=== PATIENT | female | born 1975 | race Caucasian/White ===

== ENCOUNTER 2020-10-05 15:01 | Emergency (ER) | payer OTHER, SELFPAY ==
--- NOTE | ~2020-10-05 | CT_ITS ---
EXAMINATION: CT ANGIOGRAM HEAD CT ANGIOGRAM NECK CLINICAL INFORMATION: Left-sided headache. Dizziness. Neck pain. COMPARISON: CT head from 02/22/2009. TECHNIQUE: Initial noncontrast director of scout work imaging of the head and neck was performed. Noncontrast head CT was also performed. Test bolus sequences followed by intravenous administration 70 mL of Omnipaque 350. Helical imaging was performed in the axial plane from the aortic arch to the skull vertex. Delayed postcontrast imaging of the head was also performed. The data was processed at the sterile processing technologist's workstation for generation of MIP sequences. Angled MIPs and volume rendered reformatted images were also generated at an offline 3D workstation. Stenoses are assessed in accordance with NASCET criteria unless otherwise indicated. DLP: 2219 mGy-cm This CT examination was performed using dose optimization techniques as appropriate, variously including the following: *Automated exposure control. *Adjustment of mA and/or kV according to patient size (this includes techniques or standardized protocols for targeted exams where dose is matched to indication/reason for exam; i.e. extremities or head). *Use of iterative reconstruction technique. FINDINGS: CT Head: There is no evidence of acute intracranial hemorrhage or edematous territorial infarction. There is no abnormal attenuation within the brain parenchyma. Banerjee-white matter differentiation is preserved. The ventricles are normal in size and configuration. No evidence for obstructive hydrocephalus. No abnormal mass effect or midline shift. No extra-axial fluid collections. No pathologic intra-axial enhancement or regional oligemia. No acute soft tissue or osseous abnormalities. Minimal mucosal thickening of the paranasal sinuses. The mastoid air cells and middle ear cavities remain well aerated. Enamel erosions associated with multiple maxillary and mandibular teeth. Mild periapical lucency and surrounding sclerosis of the alveolar process associated with the maxillary right-sided molars. CT Neck: The thyroid gland and remaining cervical soft tissues are within normal limits. No significant abnormalities of the cervical spine. CT Upper Chest: The visualized lung apices and upper mediastinum are within normal limits. Neck CTA: Aortic Arch: Normal contour and caliber. Classic 3 vessel branching pattern of the aortic arch. Great Vessel Origins: No significant stenosis of the branch origins. Right Common Carotid Artery: Normal opacification without focal stenosis or occlusion. Cervical Right Internal Carotid Artery: Normal opacification without focal stenosis or occlusion. Left Common Carotid Artery: Normal opacification without focal stenosis or occlusion. Cervical Left Internal Carotid Artery: Normal opacification without focal stenosis or occlusion. Cervical Right Vertebral Artery: Co-dominant. Normal opacification without focal stenosis or occlusion. Cervical Left Vertebral Artery: Co-dominant. Normal opacification without focal stenosis or occlusion. Brain CTA: Moderate motion degradation. Intracranial Internal Carotid Arteries: Normal contrast opacification of the petrous, cavernous, paraophthalmic, and supraclinoid segments of the internal carotid arteries without focal stenosis. Right Anterior Cerebral Artery: Normal A1 segment. Normal opacification of the distal segments of the [place]. Left Anterior Cerebral Artery: Normal A1 segment. Normal opacification of the distal segments of the [place]. Anterior Communicating Artery: Normal. Right Middle Cerebral Artery: Normal opacification of the M1 segment of the MCA without focal stenosis or occlusion. Normal arborization of the distal segments. Left Middle Cerebral Artery: Normal opacification of the M1 segment of the MCA without focal stenosis or occlusion. Normal arborization of the distal segments. Right Vertebral Artery: Normal opacification of the V4 segment. Extracranial origin of the right-sided posterior inferior cerebellar artery. Otherwise, normal opacification of the proximal segments of the posterior inferior cerebellar artery. Left Vertebral Artery: Normal opacification of the V4 segment. The posterior inferior cerebellar artery is not well opacified; however, there is no CT evidence of acute occlusion. Basilar Artery: Normal opacification without focal stenosis or occlusion. Normal appearance of the proximal superior cerebellar arteries. Right Posterior Cerebral Artery: The P1 segment is diminutive. origin of the [place] with robust opacification of the posterior communicating artery. Normal opacification of the distal segments of the [place]. Left Posterior Cerebral Artery: The P1 segment is diminutive. origin of the [place] with robust opacification of the posterior communicating artery. Normal opacification of the distal segments of the [place]. Normal opacification of the superior sagittal, straight, transverse, and sigmoid sinuses. CT/CT angio head neck IMPRESSION: 1. No evidence of acute intracranial hemorrhage or edematous territorial infarction. 2. CTA of the head and neck without proximal occlusion or flow-limiting stenosis. 3. Odontogenic disease.
[2020-10-05 15:08] VITALS: BP 136/64; PULSE 72; RESP 18; TEMP 36.6; O2SAT 100; BMI 42.4
--- NOTE | 2020-10-05 17:13 | ECG_ITS ---
Test Reason : DIZZYNESS Blood Pressure : / mmHG Vent. Rate : 063 BPM Atrial Rate : 063 BPM P-R Int : 166 ms QRS Dur : 104 ms QT Int : 418 ms P-R-T Axes : 037 -05 -11 degrees QTc Int : 427 ms Normal sinus rhythm Voltage criteria for left ventricular hypertrophy Nonspecific T wave abnormality Abnormal ECG When compared with ECG of 20-JUL-2014 06:49, Significant changes have occurred Referred By: Sosa Nino Electronically Signed By:SHITAL LOUIS MD
--- NOTE | 2020-10-05 17:14 | ED.GENADULT ---
HPI - General Adult General Chief complaint: Dizziness Stated complaint: HEADACHE X 2 WEEKS Time Seen by Provider: 10/05/20 17:12 Source: patient Mode of arrival: ambulatory Limitations: no limitations History of Present Illness HPI narrative: 45 y/o female presenting with left sided headache worsening over 2 weeks. She reports last night it acutely worsened and she developed neck pain, brief left sided facial tingling and dizziness. She woke up with this morning with severe left sided neck pain, she is unable to move her neck from side to side. She has been taking Aleve for the pain with some mild, brief improvement. She reports she feels unsteady on her feet as well. She was sent in from her PCP at [facility] for further evaluation. She has been dizzy with position changes intermittently over the last 2 weeks as well. MD complaint: left sided head and neck pain Onset (ago): week(s) (2) Location: head and neck Radiation: extremity Severity: severe Severity scale (1-10): 8 Quality: sharp Pain Consistency: constant Relieving factors: movement Exacerbating factors: movement Associated symptoms: headaches Treatments prior to arrival: NSAID Related Data Previous Rx's Medication Instructions Recorded uownrondff-[id number] 1 cap PO Q8H PRN #14 cap 10/05/20 [Fioricet] diazepam [Valium] 5 mg PO TID PRN #8 tab 10/05/20 lidocaine [Lidoderm] 1 patch TOPICAL DAILY #15 ea 10/05/20 Allergies Allergy/AdvReac Type Severity Reaction Status Date / Time aspirin [Aspirin] Allergy Severe ANGIOEDEMA Unverified 05/12/20 16:17 codeine [Codeine] Allergy Severe THROAT Unverified 05/12/20 16:17 SWELLING Fish Containing Products Allergy Severe SWELLING Unverified 05/12/20 16:17 ibuprofen [From Motrin] Allergy Severe ANGIOEDEMA Unverified 05/12/20 16:17 Iodinated Contrast Media Allergy Severe ANGIOEDEMA Unverified 05/12/20 16:17 [IVP Dye, Iodine Containing] latex [Latex] Allergy Severe ANGIOEDEMA Unverified 05/12/20 16:17 nickel [Nickel] Allergy Intermediate RASH Unverified 05/12/20 16:17 sulfamethoxazole Allergy Intermediate RASH Unverified 05/12/20 16:17 [From BACTRIM] trimethoprim [From BACTRIM] Allergy Intermediate RASH Unverified 05/12/20 16:17 prolixin Allergy Unknown Unverified 04/18/15 00:00 lactose [Lactose] AdvReac Severe STOMACH Unverified 05/12/20 16:17 UPSET From PROLIXIN Allergy Severe ANGIOEDEMA Uncoded 05/12/20 16:17 Codeine Sulfate Allergy Unknown Uncoded 04/18/15 00:00 IV dye Allergy Unknown Uncoded 02/16/15 00:00 IV Dyes Allergy Unknown Uncoded 04/18/15 00:00 lactos intollerant Allergy Unknown Uncoded 04/18/15 00:00 Latex Allergy Unknown Uncoded 04/18/15 00:00 latex Allergy Unknown Uncoded 02/16/15 00:00 nicotine patch Allergy Unknown Uncoded 04/18/15 00:00 Review of Systems Review of Systems: Constitutional: No Fever, No Chills ENT/Mouth: No sore throat, No Rhinorrhea, No Swallowing Difficulty Eyes: No Eye Pain, No Swelling, No Redness Cardiovascular: No Chest Pain, No SOB, No Orthopnea, No Edema Respiratory: No Cough, No Sputum, No Wheezing, No dyspnea Gastrointestinal: No Nausea, No Vomiting, No Diarrhea, No abdominal Pain Genitourinary: No Dysuria, No Urinary Frequency, No Hematuria Musculoskeletal: No joint pain, + Myalgias Skin: No Skin Lesions, No rash Neuro: No Weakness, No Numbness, + Dizziness, + Headache Psych: No Anxiety/Panic, No Depression Heme/Lymph: No Bruising, No Lymphadenopathy PMFSH Past Medical History Attestation statement: The following information was validated with the patient. Medical History Anxiety and depression Asthma Asthma COVID-19 GERD (gastroesophageal reflux disease) Irritable bowel syndrome Morbid obesity Nonalcoholic fatty liver disease Pseudoseizures PTSD (post-traumatic stress disorder) Social History Social History Smoked in Last 30 Days: No Use of substances other than those prescribed or required for medical reasons: No Advance Directives: No Advance Directives Information Provided: No Physical Exam Vital Signs: Vital Signs: Last Vital Signs Temp 98.9 F 10/05/20 19:13 Pulse 74 10/05/20 20:09 Resp 15 10/05/20 20:09 BP 125/64 10/05/20 20:09 Pulse Ox 98 10/05/20 20:09 Body Mass Index 42.4 Const: General: cooperative, healthy appearing, comfortable, no acute distress, alert and awake Orientation/consciousness: oriented to person, oriented to place and oriented to time HENMT: Head: Yes normal to inspection, Yes normocephalic and Yes atraumatic Ears: hearing grossly normal bilaterally General nose exam: Normal external nose present and Normal nares present Face and sinus: Yes normal facial exam Mouth: Normal oral and palatal mucosa present Throat: Yes posterior oropharynx normal Eyes: General: appearance normal, both eyes and all related structures Periorbital: periorbital findings normal Eyelids: Yes eyelids normal Conjunctivae: conjunctivae normal Pupils: Equal, round and reactive pupils present and Pupil accommodation reflex normal EOM: EOMs intact bilaterally Neck: Neck: Yes normal visual inspection and Yes tender (left side with SCM spasm) Lymphatic: no lymphadenopathy noted Chest: Chest palpation & inspection: normal inspection of the chest and normal palpation of entire chest wall Resp: Effort & Inspection: normal respiratory effort and able to speak in complete sentences Auscultation: clear to auscultation bilaterally Cardio: Jugular venous distension: no JVD Rate: regular rate Rhythm: regular rhythm GI: Inspection: Yes normal to inspection Palpation (GI): Soft to palpation and nontender Auscultation: normal bowel sounds Skin: General skin exam: no rashes or lesions noted Neuro: General: oriented to person, oriented to place and oriented to time Cranial nerves: Yes CN's II-XII intact bilaterally and Yes Equal, round and reactive pupils present Cognition (Neuro): normal cognition Motor exam (neuro): 5/5 motor strength present throughout and Pronator motor function present pronator drift of left upper extremity Coordination: jtzuoe-cg-gikq test normal and dizd-qh-gcut test normal Extrem: General: Yes normal to inspection and Yes full ROM Psych: Appearance: grossly normal and well kempt Mental Status: mental status grossly normal Speech and movement: Normal speech and movement present and Clear speech present Affect: Blunted affect present Attitude: cooperative Thought process: Normal thought process present Thought content: Normal thought content present Course Course Course Narrative: 45 y/o presenting with 2 weeks of left sided headache, acutely worsening lsat night with new neck pain, dizziness, and facial tingling. Very limited neck ROM wtih tenderness throughout left lateral neck, possible torticollis however concern for possible dissection or CVA given her symptoms. Symptoms have been present for almost [address] head, CTA head/neck to assess vasulature. PO Valium and Tylenol ordered now for muscle spams in neck. Reevaluation(s) Reevaluation #1: Significant improvement in neck pain after Valium and Tylenol. Headache persists but improved. No dizziness. Ambulating with steady gait. CTA head/neck is normal. She is feeling much better. She agrees to follow up with her PCP tomorrow and will return to the ER if symptoms worsen. Comfortable with d/c home. Medical Decision Making Lab Data Result diagrams: 10/05/20 17:32 10/05/20 17:32 Labs: Lab Results 10/05/20 10/05/20 10/05/20 Range/Units 17:32 17:32 17:32 WBC 9.7 (4.8-10.8) X10*3/uL RBC 4.82 (4.20-5.50) X10*6/uL Hgb 14.2 (12.0-16.0) g/dl Hct 43.6 (37-47) % MCV 90.5 (80-98) fL MCH 29.5 (27.0-33.0) pg MCHC 32.6 (31.0-35.0) g/dl RDW 13.2 (11.0-16.0) % Plt Count 229 (160-400) X10*3/uL MPV 12.0 (9.4-12.3) fL Immature Gran % (Auto) 0.4 (0.0-0.4) % Neut % (Auto) 63.2 (45-73) % Lymph % (Auto) 28.7 (20-40) % [place] % (Auto) 4.7 (2-11) % Eos % (Auto) 2.3 (0-4) % Baso % (Auto) 0.7 (0-2) % Lymph # (Auto) 2.8 (1.2-4.9) X10*3/uL [place] # (Auto) 0.5 (0.1-1.2) X10*3/uL Eos # (Auto) 0.2 (0.0-0.4) X10*3/uL Baso # (Auto) 0.1 (0.0-0.2) X10*3/uL Abs Immat Gran (auto) 0.04 H (0.00-0.03) X10*3/uL Absolute Neuts (auto) 6.2 (2.0-8.3) X10*3/uL Absolute Nucleated RBC 0.000 (0.0-0.012) X10*3/uL Nucleated RBC % (auto) 0.0 (0.0-0.2) /100WBC PT 13.5 H (10.8-13.0) SEC INR 1.1 (0.9-1.1) APTT 32.1 (24.1-38.0) SEC Hold Blue Top SEE NOTE Sodium 142 (135-145) mmol/L Potassium 4.0 (3.3-5.1) mmol/L Chloride 109 H (96-108) mmol/L Carbon Dioxide 25 (22-29) mmol/L Anion Gap 12 (12-20) BUN 19 H (9-16) mg/dL Creatinine 0.77 (0.5-1.4) mg/dL Estim Creat Clear Calc 95.2 Estimated GFR > 60 Random Glucose 105 (60-115) mg/dL Calcium 8.9 (8.4-10.2) mg/dL Magnesium 2.3 (1.6-2.6) mg/dL Total Bilirubin 0.3 (0.0-1.0) mg/dL Direct Bilirubin < 0.2 (0.0-0.5) mg/dL AST 15 (5-31) U/L ALT 27 (0-31) U/L Alkaline Phosphatase 132 H (39-117) U/L Total Protein 6.9 (6.5-8.0) g/dL Albumin 4.2 (3.5-5.0) g/dL ECG Data Attestation: I personally reviewed and interpreted this ECG as follows: Interpretation: normal sinus rhythm, HR 63 bpm, nonspecivic T-wave abnormalities - t-wave inversion in lead III, V1-V4. 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 Your blood workup was normal. Your exam is consistent with muscle spasm in your neck. Take the prescribed medications for this. Recommend using heat to the area several times per day. Start gentle stretches of your neck as tolerated. Prescriptions: New diazepam [Valium] 5 mg tablet 5 mg PO TID PRN (Reason: muscle spasm) Qty: 8 RF: 0 offnfngpbs-stprvfcbjfopw-tagy [Fioricet] 50-300-40 mg capsule 1 cap PO Q8H PRN (Reason: headache) Qty: 14 RF: 0 lidocaine [Lidoderm] 5 % adhesive patch,medicated 1 patch topical DAILY Qty: 15 RF: 0 Interventions: ED Discharge Assessment Last Done: 10/05/20 21:00 Discharge Date/Time: 10/05/20 21:02
[2020-10-05 17:21] VITALS: BP 152/88; PULSE 67; RESP 18; O2SAT 100
[2020-10-05 17:38] LABS: MANUAL DIFF FLAG NO
[2020-10-05 17:40] LABS: Basophils Absolute Auto 0.1 X10*3/uL (0.0-0.2); Basophils Percent Auto 0.7 % (0-2); Eosinophils Absolute Auto 0.2 X10*3/uL (0.0-0.4); Eosinophils Percent Auto 2.3 % (0-4); Hematocrit 43.6 % (37-47); Hemoglobin 14.2 g/dl (12.0-16.0); Imm Gran Abs Auto 0.04 X10*3/uL (0.00-0.03); Imm Gran Pct Auto 0.4 % (0.0-0.4); Lymphocytes Absolute Auto 2.8 X10*3/uL (1.2-4.9); Lymphocytes Percent Auto 28.7 % (20-40); Mean Corpuscular HGB Conc 32.6 g/dl (31.0-35.0); Mean Corpuscular Hemoglobin 29.5 pg (27.0-33.0); Mean Corpuscular Volume 90.5 fL (80-98); Monocytes Absolute Auto 0.5 X10*3/uL (0.1-1.2); Monocytes Percent Auto 4.7 % (2-11); Neutrophils Absolute Auto 6.2 X10*3/uL (2.0-8.3); Neutrophils Percent Auto 63.2 % (45-73); Platelet Count 229 X10*3/uL (160-400); Red Blood Count 4.82 X10*6/uL (4.20-5.50); Red Cell Distribution Width 13.2 % (11.0-16.0); White Blood Count 9.7 X10*3/uL (4.8-10.8)
[2020-10-05 17:43] LABS: INTERNATIONAL NORM RATIO 1.1 (0.9-1.1); Prothrombin Time 13.5 SEC (10.8-13.0)
[2020-10-05 17:46] LABS: Partial Thromboplastin Time 32.1 SEC (24.1-38.0)
[2020-10-05] MEDS: diazePAM 5 MG TABLET PO (17:55)
[2020-10-05] MEDS: Acetaminophen 325 MG TABLET 975 MG PO (17:55)
[2020-10-05 18:00] VITALS: BP 133/62; PULSE 62; RESP 16; TEMP 37; O2SAT 100
[2020-10-05 18:24] LABS: Alanine Aminotransferase 27 U/L (0-31); Albumin Level 4.2 g/dL (3.5-5.0); Alkaline Phosphatase 132 U/L (39-117); Anion Gap 12 (12-20); Aspartate Amino Transferase 15 U/L (5-31); Bilirubin Direct < 0.2 mg/dL (0.0-0.5); Bilirubin Total 0.3 mg/dL (0.0-1.0); Blood Urea Nitrogen 19 mg/dL (9-16); Calcium 8.9 mg/dL (8.4-10.2); Carbon Dioxide 25 mmol/L (22-29); Chloride 109 mmol/L (96-108); Creatinine Clr Calc Pharmacy 95.2; Estimated Glomerular Filt Rate > 60; Glucose Random 105 mg/dL (60-115); Magnesium 2.3 mg/dL (1.6-2.6); Sodium 142 mmol/L (135-145); Total Protein 6.9 g/dL (6.5-8.0)
[2020-10-05] MEDS: iohexoL 350 MG/ML 100 ML INFUS..BTL IV (18:50)
[2020-10-05 19:13] VITALS: BP 102/60; PULSE 98; RESP 21; TEMP 37.2; O2SAT 98
[2020-10-05 20:09] VITALS: BP 125/64; PULSE 74; RESP 15; O2SAT 98
== END 2020-10-05 21:02 | disposition home or self-care (01) ==
PROVIDERS: Physician Assistant; Emergency Provider Emergency Medicine; PCP Internal Medicine
DX: M43.6 Torticollis (principal); G44.51 Hemicrania continua; J45.909 Unspecified asthma, uncomplicated; Z86.16 Personal history of COVID-19
CPT/HCPCS: 36415; 70496; 70498; 80048; 80076; 83735; 85025; 85610; 85730; 93005; 99284; Q9967

== ENCOUNTER → 2020-10-26 10:09 | Outpatient (REF) | payer OTHER, SELFPAY ==
--- NOTE | 2020-10-26 10:29 | ECG_ITS ---
Test Reason : QTC CHECK Blood Pressure : / mmHG Vent. Rate : 071 BPM Atrial Rate : 071 BPM P-R Int : 164 ms QRS Dur : 100 ms QT Int : 388 ms P-R-T Axes : 046 -04 -12 degrees QTc Int : 421 ms Normal sinus rhythm Voltage criteria for left ventricular hypertrophy Cannot rule out Septal infarct , age undetermined Abnormal ECG When compared with ECG of 05-OCT-2020 17:25, No significant change was found Referred By: Angelique Marks Electronically Signed By:LUISA REARDON
== END ==
LOC: HO.CARD 10:09
PROVIDERS: Visit Provider Nurse Practitioner Psychiatric/Mental Health
DX: R94.31 Abnormal electrocardiogram [ECG] [EKG] (principal); Z79.899 Other long term (current) drug therapy
CPT/HCPCS: 93005

== ENCOUNTER 2025-05-26 15:26 | Emergency (ER) | payer SELFPAY ==
--- NOTE | ~2025-05-26 | XR_ITS ---
EXAMINATION: XR FOREARM, RIGHT CLINICAL INFORMATION: pain COMPARISON: None available. TECHNIQUE: AP and lateral views of the right forearm were obtained. FINDINGS: The bones and soft tissues are normal. No fracture. Imaged portions of the elbow and wrist are unremarkable. XR/XR forearm RT 2V IMPRESSION: Unremarkable right forearm. Electronically signed by: Alberto Gilmore MD 05/26/2025 05:07 PM EDT RP
--- NOTE | ~2025-05-26 | XR_ITS ---
EXAMINATION: XR HAND, RIGHT CLINICAL INFORMATION: pain COMPARISON: None available. TECHNIQUE: PA, lateral, and oblique views of the right hand. FINDINGS: No fractures are identified. Joint spaces are preserved. Bone mineral density is within normal limits. Soft tissue calcification is present on the palmar side to the distal phalanx of the fourth digit. XR/XR hand RT min 3V IMPRESSION: Unremarkable right hand Electronically signed by: Alberto Gilmore MD 05/26/2025 05:08 PM EDT RP
[2025-05-26 16:08] VITALS: BP 169/99; PULSE 94; RESP 18; TEMP 36.7; O2SAT 98; BMI 44.2
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
--- OUTSIDE RECORDS SUMMARY | 2025-05-26 18:48 | XMS_ITS ---
Author Name [facility] Organization Unknown Care Team Organization Name Specialty Phone Email Start Date End Da alyson [facility] 07/03/2022 4
[2025-05-26 19:18] VITALS: BP 146/80; PULSE 91; RESP 15; TEMP 36.8; O2SAT 94
== END 2025-05-26 19:19 | disposition home or self-care (01) ==
PROVIDERS: Emergency Provider Student in an Organized Health Care Education/Training Program
DX: S60.211A Contusion of right wrist, initial encounter (principal); V43.62XA Car passenger injured in collision with other type car in traffic accident, initial encounter; Y93.9 Activity, unspecified; Y92.9 Unspecified place or not applicable; Y99.9 Unspecified external cause status; M25.531 Pain in right wrist
CPT/HCPCS: 73090; 73130; 99283

== ENCOUNTER → 2025-05-26 16:29 | Outpatient (BNV) | payer OTHER, SELFPAY | PROVIDERS: Visit Provider Radiology Diagnostic Radiology | DX: M79.641 Pain in right hand (principal); M79.631 Pain in right forearm | CPT/HCPCS: 73090; 73130 ==